=== PATIENT | male | born 1960 | race Caucasian/White ===

== ENCOUNTER 2023-04-05 03:39 | Emergency (ER) | payer OTHER, SELFPAY ==
[2023-04-05 03:40] VITALS: BP 134/72
--- NOTE | 2023-04-05 04:22 | ED.GENMED ---
History of Present Illness
<CAROLINE Walsh - Last Filed: 04/05/23 06:14>
General
Chief Complaint: Skin Problem
Source: patient
Exam Limitations: none
Time Seen by Provider: 04/05/23 04:02
Nursing documentation reviewed up to this point in time: agreed with
Travel History
Have you had any contact with someone who has COVID-19?: No
Do you have any symptoms of coronavirus? Fever > 100 degrees, chills, cough, shortness of breath, sore throat, loss of taste or smell, muscle aches, or headache?: No
History of Present Illness
History of Present Illness:
Pt is a 62 yo male with PMH of T2DM, HLD, and tobacco use who presents today with redness, swelling, and pain in his left ankle. Pt recalls no injury, change in activity or footwear. 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
his shift tonight, his left ankle became swollen, red, and painful. By 11pm, he was unable to walk on it due to the pain in his anterior ankle. Pt took advil 800 mg at 10 pm. Of note, the pt was bitten by his dog around his lower leg and ankle about
3 months ago. Pt never sought care and never took antibiotics. He has multiple scabbed over lesions on his left lower leg and ankle from this dog bite. Pt has constant numbness and tingling in his feet and ankles due to diabetic peripheral
neuropathy. Denies chest pain, shortness of breath, recent fever or illness. He has full active ROM of left ankle with pain with plantar flexion. Distal pulses intact b/l.
Past History
<CAROLINE Walsh - Last Filed: 04/05/23 06:14>
Past History
ED Past Medical History: Hypercholesterolemia, NIDDM, Other (History of chronic back pain, it has not bothered him in 'a while') and Other (Migraine)
Social History
Tobacco: Smoker
Alcohol: None
Drug: None
Personal:
Living: with family
Review of Systems
<CAROLINE Walsh - Last Filed: 04/05/23 06:14>
Review of Systems
Allergies reviewed?: Yes
All Other Systems: ROS reviewed and negative except as documented in HPI and ROS
Phy Exam
<CAROLINE Walsh - Last Filed: 04/05/23 06:14>
General Physical Exam
General Presentation: well appearing and no apparent distress
General age: appears stated age
General Skin: warm and dry
General Habitus: normal
General Mental: alert
ENT Exam
ENT Exam: neck supple, normocephalic and swallowing well
Eye Exam
Eye Exam: PERRL and conjunctiva normal
Cardiovascular Exam
Cardiovascular Exam: regular rate/rhythm, no edema, no gallop, no murmur and normal peripheral pulses (posterior tib and dorsalis pedis)
Pulmonary Exam
Pulmonary Exam: lungs clear, no respiratory distress, no rales, no crackles, no rhonchi, no wheezing and no cough
Neurological Exam
Neurological Exam: alert, oriented x3 and speech normal
Musculoskeletal Exam
Musculoskeletal Exam: full ROM and joint swelling (swelling, redness, and warmth of left ankle)
Skin Exam
Skin Exam: normal color, warm/dry and other (multiple dry scabs on left lower leg and ankle. Plantar surface of b/l feet unhygienic and brown)
Psychiatric Exam
Psychiatric Exam: normal mood/affect
Course
<CAROLINE Walsh - Last Filed: 04/05/23 06:14>
Orders/Labs/Results
Orders:
Orders
04/05/23 04:18
CBC/With Diff [Complete Blood Count/With Diff] Urgent
CMP [Comprehensive Metabolic Panel] Urgent
CRP [C-Reactive Protein] Urgent
ESR [Erythrocyte Sed Rate] Urgent
Glycohemoglobin (HgbA1c) Urgent
US Legs, Left [US Periph Venous LOWER Ext LT] Urgent
Comment:
Reason For Exam: left ankle swelling and redness
04/05/23 04:20
Add On- LAB Urgent
Tests Added?: Hgb A1c
04/05/23 04:49
CR Ankle - Left Min 3 Views Urgent
Comment:
Reason For Exam: left ankle pain, swelling, and redness
04/05/23 06:02
Amoxicillin 875 mg/Clav 125 mg [Augmentin 875 mg/125 mg] 1 tablet PO NOW STA
Abnormal Lab Results
04/05/23
04:18
RBC 4.59 L 10^6/uL
(4.70-6.10)
Hct 38.7 L %
(39.0-52.0)
RDW 15.9 H %
(11.5-14.5)
Abs Immat Gran (auto) 0.1 H 10^3/uL
(0-0.05)
Absolute Monos (auto) 0.7 H 10^3/uL
(0.1-0.6)
Immature Gran % 0.7 H %
(0-0.5)
Monocytes % 9.9 H %
(1.7-9.3)
ESR 26 H mm/hour
(0-20)
Glucose 177 H mg/dl
(70-99)
C-Reactive Protein 16.00 H mg/L
(0.0-10.00)
04/05/23 04:18
04/05/23 04:18
Vital Signs
Initial and Last Documented VS:
Initial Vital Signs
Temp Pulse Resp BP Pulse Ox
97.8 F 114 18 134/72 100
04/05/23 03:40 04/05/23 03:40 04/05/23 03:40 04/05/23 03:40 04/05/23 03:40
Last Documented Vital Signs
Temp Pulse Resp BP Pulse Ox
97.8 F 92 18 119/70 96
04/05/23 03:40 04/05/23 06:12 04/05/23 06:12 04/05/23 06:12 04/05/23 06:12
<Sukhdeep Lord, DO - Last Filed: 04/05/23 06:07>
Orders/Labs/Results
Orders:
Orders
04/05/23 04:18
CBC/With Diff [Complete Blood Count/With Diff] Urgent
CMP [Comprehensive Metabolic Panel] Urgent
CRP [C-Reactive Protein] Urgent
ESR [Erythrocyte Sed Rate] Urgent
Glycohemoglobin (HgbA1c) Urgent
US Legs, Left [US Periph Venous LOWER Ext LT] Urgent
Comment:
Reason For Exam: left ankle swelling and redness
04/05/23 04:20
Add On- LAB Urgent
Tests Added?: Hgb A1c
04/05/23 04:49
CR Ankle - Left Min 3 Views Urgent
Comment:
Reason For Exam: left ankle pain, swelling, and redness
04/05/23 06:02
Amoxicillin 875 mg/Clav 125 mg [Augmentin 875 mg/125 mg] 1 tablet PO NOW STA
Abnormal Lab Results
04/05/23
04:18
RBC 4.59 L 10^6/uL
(4.70-6.10)
Hct 38.7 L %
(39.0-52.0)
RDW 15.9 H %
(11.5-14.5)
Abs Immat Gran (auto) 0.1 H 10^3/uL
(0-0.05)
Absolute Monos (auto) 0.7 H 10^3/uL
(0.1-0.6)
Immature Gran % 0.7 H %
(0-0.5)
Monocytes % 9.9 H %
(1.7-9.3)
ESR 26 H mm/hour
(0-20)
Glucose 177 H mg/dl
(70-99)
C-Reactive Protein 16.00 H mg/L
(0.0-10.00)
04/05/23 04:18
04/05/23 04:18
Vital Signs
Initial and Last Documented VS:
Initial Vital Signs
Temp Pulse Resp BP Pulse Ox
97.8 F 114 18 134/72 100
04/05/23 03:40 04/05/23 03:40 04/05/23 03:40 04/05/23 03:40 04/05/23 03:40
Last Documented Vital Signs
Temp Pulse Resp BP Pulse Ox
97.8 F 92 18 119/70 96
04/05/23 03:40 04/05/23 06:12 04/05/23 06:12 04/05/23 06:12 04/05/23 06:12
<CAROLINE Walsh - Last Filed: 04/05/23 06:14>
MDM/Problems Addressed
Differential Diagnosis Includes:
septic arthritis, aseptic arthritis, gout, ankle fracture, ankle sprain, osteomyelitis, cellulitis
MDM/Problems Addressed:
Pt is a 62 yo male with PMH of T2DM, HLD, and tobacco use who presents with left ankle pain, swelling, redness, and warmth
Chronic conditions affecting care: DM
<CAROLINE Walsh - Last Filed: 04/05/23 06:14>
*Critical Care Note
Total Time (30-74mins, 75-104mins- exclusive of procedures): Not Applicable
ED Attending Note
<CAROLINE Walsh - Last Filed: 04/05/23 06:14>
-
Portions of this chart may have been created with voice recognition software.� Occasional wrong word or��sound alike� substitutions may have occurred due to the inherent limitations of voice recognition software.
<Sukhdeep Lord, DO - Last Filed: 04/05/23 06:07>
ED Attending Note
Patient seen and examined by attending physician: Yes
I performed the substantive portion of visit, reviewed & personally made and approve the management plan that is documented in note by myself or RITA.: Yes
ED Attending Note:
Pleasant 62-year-old male presents with swelling of his left ankle. He states that he started to develop redness over the last day or 2. Today he states he has been unable to walk. He is especially concerned because he has type 2 diabetes and
peripheral neuropathy. Patient does have a slowly healing wound on the ankle from his dog who bit him accidentally while attempting to secure a mouse. Patient did not seek care for the lower extremity wound. Denies any antibiotic usage. Denies
fever or chills. Patient was seen in conjunction with the PA student. I have reviewed and agree with the history and treatment plan presented. On my independent physical exam, patient is awake, alert, and oriented x3 minimal acute distress
focused physical exam left ankle is swollen. There are good distal pulses. There is some erythema but no streaking. Skin is warm to the touch. Full range of motion in bilateral ankles and toes. Normal capillary refill. Ultrasound negative for
DVT. X-rays negative for osteomyelitis
Update: Discussed disposition with the patient. At this point he wishes to be discharged home stating 'I walked in here, and I will walk out '. He has not followed supervisor pyrotechnic loading I will give him a supervisor pyrotechnic loading that he can follow-up with. He will return
to the ER or speak with his family doctor with any other issues. Patient to be discharged in improved condition
Discharge Plan
Departure
Patient Disposition: Home (Routine Discharge)
Date of Disposition: 04/05/23
Time of Disposition: 06:03
Patient with high blood pressure during this ER visit?: Yes
Condition: Good
Discharge Problem:
Cellulitis, Diabetes
Instructions: Wound Care (DC), Cellulitis (Skin Infection), Adult (DC), BLOOD PRESSURE
Prescriptions:
New
amoxicillin-pot clavulanate 875-125 mg tablet
1 tab PO BID Qty: 20 0RF
No Action
naproxen-pseudoephedrine [Aleve-D Sinus and Headache] 1 EACH tablet extended release 12 hr
1 tab PO BID
atorvastatin 20 MG tablet
20 mg PO DAILY
aspirin 325 MG tablet,delayed release (DR/EC)
325 mg PO DAILY
metformin 1,000 MG tablet
1,000 mg PO BID
omeprazole 20 MG capsule,delayed release(DR/EC)
20 mg PO QPM
Nerve Renew
2 tab PO BID
Potassium Gluconate
595 mg PO DAILY
Referrals:
Harris Simeon MD [Family Provider] -
Alex Gordon DPM [Specified Professional Personl] - Next open appointment
Activity Restrictions/Additional Instructions:
Your prescriptions were sent electronically to the pharmacy that you specified.
It was a pleasure meeting you and taking part in your care. We hope for your continued healing and wellness.
Please read discharge instructions in their entirety. However, they are for general education and may not describe your exact diagnosis at discharge. Information on your ER visit and medical conditions were discussed with you along with appropriate
follow up information...
If indicated, please take your medications as instructed and indicated on discharge paperwork.
Please schedule a follow up appointment as directed. Call to schedule an appointment
Please return to the emergency department with ANY change in, persisting, or worsening of symptoms. If any of your symptoms do not improve, or persist, or become more severe within 6-12 hours, please return to the emergency department for further
care.
Please return to the emergency department if you develop a headache, neck pain/stiffness, fever greater than 100.4F, chest pain, shortness of breath, persistent nausea, vomiting, slurred speech, difficulty walking, numbness/tingling, weakness, signs
of infection or any other symptoms that are worrisome to you.
If you have any questions or concerns please do not hesitate to call the Hospital at or E-mail me directly at [email or web address]
Interventions
Interventions:
*Risk Screen - Suicide Last Done: 04/05/23 03:40
*General Assessment Last Done: 04/05/23 05:41
*Neglect/Abuse Screening Last Done: 04/05/23 03:40
ED- Fall Risk Assessment Last Done: 04/05/23 04:12
*Nursing Disposition Last Done: 04/05/23 06:12
ED-Musculoskeletal Assessment Last Done: 04/05/23 04:11
ED-Skin Assessment Last Done: 04/05/23 04:12
Discharge Date and Time
Discharge Date/Time: 04/05/23 06:13
[2023-04-05 04:27] LABS: % Basophils 1.8 % (0-2); % Eosinophils 3.7 % (0-6); % Immature Granulocytes 0.7 % (0-0.5); % Lymphocytes 28.5 % (20.5-51.1); % Monocytes 9.9 % (1.7-9.3); % Neutrophils 55.4 % (42.2-75.2); Absolute Basophils 0.1 10^3/uL (0-0.2); Absolute Eosinophils 0.3 10^3/uL (0-0.7); Absolute Immature Granulocytes 0.1 10^3/uL (0-0.05); Absolute Lymphocytes 1.9 10^3/uL (1.2-3.4); Absolute Monocytes 0.7 10^3/uL (0.1-0.6); Absolute Neutrophils 3.8 10^3/uL (1.4-6.5); Hematocrit 38.7 % (39.0-52.0); Hemoglobin 13.2 g/dL (13.0-18.0); Mean Corp Hgb Conc. 34.1 g/dL (33.0-37.0); Mean Corpuscular Hgb 28.8 pg (27.0-31.0); Mean Corpuscular Volume 84.3 fL (80.0-94.0); Mean Platelet Volume 9.8 fL (7.4-10.4); Nucleated Red Blood Cells % 0 % (-); Platelet Count 252 10^3/uL (130-400); Red Blood Cell Count 4.59 10^6/uL (4.70-6.10); Red Cell Dist. Width 15.9 % (11.5-14.5); White Blood Cell Count 6.8 10^3/uL (4.8-10.8)
[2023-04-05 04:51] LABS: ALT (SGPT) 25 U/L (0-50); AST (SGOT) 27 U/L (17-59); Alkaline Phosphatase 53 U/L (38-126); Blood Urea Nitrogen 17 mg/dl (9-20); Calcium 9.1 mg/dl (8.4-10.2); Carbon Dioxide 29 mmol/L (22-30); Chloride 104 mmol/L (98-107); Glucose 177 mg/dl (70-99); Potassium 3.7 mmol/L (3.5-5.1); Sodium 139 mmol/L (135-145); Total Bilirubin 0.4 mg/dl (0.2-1.3); Total Protein 6.6 g/dl (6.3-8.2); eGFR > 60.00
[2023-04-05 05:16] LABS: Erythrocyte Sed Rate 26 mm/hour (0-20)
[2023-04-05] MEDS: AUGMENTIN 875 MG/125 MG 1 TABLET PO (06:08)
[2023-04-05 06:12] VITALS: BP 119/70
[2023-04-05 09:42] LABS: Glycohemoglobin (HgbA1c) 8.1 % (4.0-5.6)
== END 2023-04-05 06:13 | disposition home or self-care (01) ==
LOC: EMR 03:39
PROVIDERS: EMERGENCY PHYSICIAN Student in an Organized Health Care Education/Training Program; FAMILY PHYSICIAN Family Medicine
DX: L03.116 Cellulitis of left lower limb (principal); W54.0XXA Bitten by dog, initial encounter; E11.42 Type 2 diabetes mellitus with diabetic polyneuropathy; F17.200 Nicotine dependence, unspecified, uncomplicated; E78.00 Pure hypercholesterolemia, unspecified; R03.0 Elevated blood-pressure reading, without diagnosis of hypertension
CPT/HCPCS: 99285; 73610; 80053; 83036; 85025; 85652; 86140; 93971

== ENCOUNTER → 2023-04-20 12:30 | Outpatient (REF) | payer OTHER, SELFPAY | LOC: PAVMRI 12:30 | PROVIDERS: ATTENDING PHYSICIAN Physician Assistant; FAMILY PHYSICIAN Family Medicine | DX: M79.89 Other specified soft tissue disorders (principal); L03.116 Cellulitis of left lower limb; W54.0XXD Bitten by dog, subsequent encounter; E11.42 Type 2 diabetes mellitus with diabetic polyneuropathy | CPT/HCPCS: 73721 ==

== ENCOUNTER 2023-06-06 13:03 | Outpatient (RCR) | payer OTHER, SELFPAY | END 2023-06-06 23:59 | disposition home or self-care (01) | LOC: RPT 13:03 | PROVIDERS: ATTENDING PHYSICIAN Physician Assistant; FAMILY PHYSICIAN Family Medicine | DX: S93.402D Sprain of unspecified ligament of left ankle, subsequent encounter (principal); R26.89 Other abnormalities of gait and mobility; Z73.6 Limitation of activities due to disability | CPT/HCPCS: 97110; 97112; 97140; 97162 ==

== ENCOUNTER 2023-06-20 12:59 | Outpatient (RCR) | payer OTHER, SELFPAY | END 2023-06-20 13:55 | disposition home or self-care (01) | LOC: RPT 12:59 | PROVIDERS: ATTENDING PHYSICIAN Physician Assistant; FAMILY PHYSICIAN Family Medicine | DX: S93.402D Sprain of unspecified ligament of left ankle, subsequent encounter (principal); R26.89 Other abnormalities of gait and mobility; Z73.6 Limitation of activities due to disability | CPT/HCPCS: 97110; 97112; 97140 ==

== ENCOUNTER → 2024-11-13 08:42 | Outpatient (REF) | payer OTHER, SELFPAY | LOC: HWRAD 08:42 | PROVIDERS: ATTENDING PHYSICIAN Family Medicine | DX: F17.210 Nicotine dependence, cigarettes, uncomplicated (principal) | CPT/HCPCS: 71271 ==